=== PATIENT | female | born 1970 | race Asian ===

== ENCOUNTER 2021-12-17 13:27 | Outpatient (CLI) | payer OTHER, SELFPAY ==
[2021-12-17 21:40] LABS: Chloride* 96 mmol/L (96-114); Potassium* 3.8 mmol/L (3.6-5.1); Sodium* 134 mmol/L (135-149)
[2021-12-17 21:42] LABS: Cholesterol* 237 mg/dL (90-199); Creatinine* 0.6 mg/dL (0.5-1.5); Estimated Glomerular Filt Rate 109 ml/min
[2021-12-17 21:43] LABS: Blood Urea Nitrogen* 13 mg/dL (7-30); Calcium* 9.7 mg/dL (8.4-10.6); Carbon Dioxide* 30 mmol/L (20-32); Glucose* 87 mg/dL (60-115); Triglycerides* 64 mg/dL (40-149)
[2021-12-17 21:44] LABS: HDL Cholesterol* 88 mg/dL (>=50); LDL Cholesterol Calculated 136 mg/dL (<100)
== END 2021-12-17 13:28 | disposition home or self-care (01) ==
PROVIDERS: PCP Emergency Medicine; Visit Provider Emergency Medicine
DX: Z01.419 Encounter for gynecological examination (general) (routine) without abnormal findings (principal); Z13.1 Encounter for screening for diabetes mellitus; Z13.6 Encounter for screening for cardiovascular disorders
CPT/HCPCS: 80048; 80061

== ENCOUNTER 2022-03-05 10:10 | Outpatient (CLI) | payer OTHER, SELFPAY ==
--- NOTE | 2022-03-05 10:15 | CRLHL7_ITS ---
For Patients: As a result of the Century Cures Act, medical imaging exams and procedure reports are released immediately into your electronic medical record. You may view this report before your referring provider. If you have questions, please contact your health care provider. BILATERAL SCREENING MAMMOGRAM WITH COMPUTER-AIDED DETECTION AND TOMOSYNTHESIS TECHNIQUE: CC and MLO views were obtained. These mammographic images have been obtained using full-field digital technique. These mammographic images were interpreted with the benefit of computer-aided detection. Breast Tomosynthesis was used in this interpretation. COMPARISON FILM: 02/27/2021, 02/27/2020, 02/24/2019. FINDINGS: There are scattered areas of fibroglandular density IMPRESSION: There is no radiographic evidence for malignancy. ASSESSMENT: BI-RADS Category 1: Negative RECOMMENDATION: Routine screening mammogram in 1 year. A lay language report of this examination will be provided to the patient. Raimundo Davies M.D. Diagnostic Radiologist [email or web address] EDGAR/Dictated by: Raimundo Davies MD @ 03/05/2022 1:00:00 PM (Electronically Signed)
== END 2022-03-05 10:11 | disposition home or self-care (01) ==
PROVIDERS: PCP Emergency Medicine; Visit Provider Emergency Medicine
DX: Z12.31 Encounter for screening mammogram for malignant neoplasm of breast (principal)
CPT/HCPCS: 77063; 77067

== ENCOUNTER 2023-01-12 08:08 | Outpatient (CLI) | payer OTHER, SELFPAY | END 2023-01-12 08:09 | disposition home or self-care (01) | LOC: NFLDREF 01-15 13:18 | PROVIDERS: PCP Emergency Medicine; Referring Provider Emergency Medicine; Visit Provider Emergency Medicine | DX: Z13.1 Encounter for screening for diabetes mellitus (principal); Z13.6 Encounter for screening for cardiovascular disorders | CPT/HCPCS: 80048; 80061 ==

== ENCOUNTER 2023-03-18 09:52 | Outpatient (CLI) | payer OTHER, SELFPAY ==
--- NOTE | 2023-03-18 10:15 | CRLHL7_ITS ---
For Patients: As a result of the Century Cures Act, medical imaging exams and procedure reports are released immediately into your electronic medical record. You may view this report before your referring provider. If you have questions, please contact your health care provider. Indication: Schwannoma follow-up. Technique: Multiplanar, multisequence MRI of the brain was performed without and with intravenous contrast. Contrast: 15 cc Dotarem. Comparison: Multiple prior MRIs of the brain, most recent dated 01/31/2021. Findings: Postsurgical changes of suboccipital craniectomy and C1 posterior arch resection. Stable encephalomalacia and gliosis involving the left cerebellar hemisphere. There is redemonstration of a T2 hyperintense peripherally enhancing region within the left hypoglossal canal. This measures approximately 9 x 15 mm (TR X AP). Overall appearance is similar to the previous examination. The corpus callosum, pituitary gland in clivus appears intact. Craniocervical junction is preserved. There is no restricted diffusion. No intracranial hemorrhage. The ventricles are proportionate to the cerebral sulci. The 4th ventricle appears midline. The basal cisterns appear patent. Few scattered nonspecific T2 FLAIR hyperintense white matter foci. Differential considerations include sequela of migraine headaches or chronic ischemic microvascular disease. Right frontal gliosis suggesting prior ventriculostomy catheter tract. Major intracranial vascular flow voids appear grossly intact. Both globes are preserved. Impression: 1. Similar size of cystic peripherally enhancing lesion within the left hypoglossal canal. 2. Stable postsurgical changes of left suboccipital craniotomy and posterior C1 arch resection. 3. No acute intracranial process. Dictated by Jerod Jensen MD @ 03/18/2023 2:24:01 PM (Electronically Signed)
== END 2023-03-18 09:53 | disposition home or self-care (01) ==
LOC: MRI 09:54
PROVIDERS: PCP Emergency Medicine; Visit Provider Neurological Surgery
DX: D36.10 Benign neoplasm of peripheral nerves and autonomic nervous system, unspecified (principal)
CPT/HCPCS: 70553; A9575

== ENCOUNTER 2023-06-11 10:00 | Outpatient (CLI) | payer OTHER, SELFPAY ==
--- NOTE | 2023-06-11 10:15 | MM_ITS ---
Patient: BLAINE AWAD Facility:?[facility] Patient ID:?[id number] Site Patient ID:?[id number]. Site :?[id number] Study:?XRay-Breast Bilateral 3D w/CAD-06/11/2023 10:26:57 AM Ordering Physician:Slim Final Report: BILATERAL SCREENING MAMMOGRAM WITH COMPUTER-AIDED DETECTION AND TOMOSYNTHESIS TECHNIQUE: CC and MLO views were obtained. These mammographic images have been obtained using full-field digital technique. These mammographic images were interpreted with the benefit of computer-aided detection. Breast Tomosynthesis was used in this interpretation. COMPARISON FILM: 03/05/2022, 02/27/2021, 02/27/2020. FINDINGS: There are scattered areas of fibroglandular density. IMPRESSION: There is no radiographic evidence for malignancy. ASSESSMENT: BI-RADS Category 1: Negative RECOMMENDATION: Routine screening mammogram in 1 year. A lay language report of this examination will be provided to the patient. Raimundo Davies M.D. Diagnostic Radiologist [email or web address] DSM/sp R& Transcribed: 1:52 p.m. SP/Dictated by: Raimundo Davies MD @ 06/11/2023 11:14:00 AM Signed by:?Raimundo Davies MD @06/11/2023 3:25:58 PM (Electronic Signature)
== END 2023-06-11 10:01 | disposition home or self-care (01) ==
LOC: MAMMO 10:01
PROVIDERS: PCP Emergency Medicine; Visit Provider Emergency Medicine
DX: Z12.31 Encounter for screening mammogram for malignant neoplasm of breast (principal)
CPT/HCPCS: 77063; 77067

== ENCOUNTER 2024-12-01 13:42 | Outpatient (CLI) | payer OTHER, SELFPAY ==
--- NOTE | 2024-12-01 14:00 | CRLHL7_ITS ---
For Patients: As a result of the Century Cures Act, medical imaging exams and procedure reports are released immediately into your electronic medical record. You may view this report before your referring provider. If you have questions, please contact your health care provider. INDICATION: BILATERAL SCREENING MAMMOGRAM, ASYMPTOMATIC 54 Y/O FEMALE COMPARISON: 06/11/2023, 03/05/2022, 02/27/2021 TECHNIQUE: Digital mammogram in CC and MLO projections including computer-aided detection (CAD) and tomosynthesis. BREAST COMPOSITION: There are scattered areas of fibroglandular density. FINDINGS: No suspicious findings. ASSESSMENT: BI-RADS 1 Negative RECOMMENDATION: Annual screening mammogram. A lay language report of this examination will be provided to the patient. Dictated by: Claudine Tate MD @ 12/05/2024 06:43:04 (Electronically Signed)
== END 2024-12-01 13:43 | disposition home or self-care (01) ==
LOC: MAMMO 13:43
PROVIDERS: PCP Family Medicine; Visit Provider Emergency Medicine
DX: Z12.31 Encounter for screening mammogram for malignant neoplasm of breast (principal)
CPT/HCPCS: 77063; 77067

== ENCOUNTER 2025-01-09 09:47 | Outpatient (CLI) | payer OTHER, SELFPAY ==
[2025-01-11 21:51] LABS: HPV Source Endocervical
[2025-01-17 08:47] LABS: Pap Test Digital Imaging Done
== END 2025-01-09 09:48 | disposition home or self-care (01) ==
PROVIDERS: PCP Family Medicine; Visit Provider Family Medicine
DX: Z00.00 Encounter for general adult medical examination without abnormal findings (principal); Z12.4 Encounter for screening for malignant neoplasm of cervix; N84.1 Polyp of cervix uteri; R73.9 Hyperglycemia, unspecified; Z76.89 Persons encountering health services in other specified circumstances
CPT/HCPCS: 80053; 80061; 86803; 87624; 87625; 88141; 88142; 88175